=== PATIENT | female | born 1965 | race Caucasian/White ===

== ENCOUNTER 2018-12-29 16:15 | Day surgery (SDC) | payer OTHER ==
[2018-12-29 17:28] LABS: ADD MAN DIFF? NO
[2018-12-29 17:32] LABS: BASOPHIL # 0.1 10^3/ul (0.0-0.1); BASOPHILS % 0.6 % (0.0-2.0); EOSINOPHILS # 0.1 10^3/ul (0.0-0.5); EOSINOPHILS % 1.5 % (0.0-7.0); LYMPHOCYTES # 2.9 10^3/ul (0.8-2.9); LYMPHOCYTES % 34.1 % (15.0-51.0); MEAN CORPUSCULAR HEMOGLOBIN 28.2 pg (29.0-33.0); MEAN CORPUSCULAR HGB CONC 31.8 g/dl (32.0-37.0); MEAN CORPUSCULAR VOLUME 88.7 fl (82.0-101.0); MEAN PLATELET VOLUME 9.8 fl (7.4-10.4); MONOCYTE # 0.6 10^3/ul (0.3-0.9); MONOCYTES % 7.4 % (0.0-11.0); NEUTROPHIL # 4.7 10^3/ul (1.6-7.5); NEUTROPHILS % 56.2 % (39.0-77.0); PLATELET COUNT 227 10^3/UL (140-415); RED BLOOD COUNT 4.96 10^6/ul (4.20-5.40); RED CELL DISTRIBUTION WIDTH 13.9 % (11.5-14.5)
[2018-12-29 17:32] LABS: WHITE BLOOD COUNT 8.4 10^3/ul (4.8-10.8)
[2018-12-29] MEDS ORDERED: PROPOFOL 100 ML (17:45)
[2018-12-29] MEDS ORDERED: FUROSEMIDE 20 MG INJ (17:45)
[2018-12-29] MEDS ORDERED: FENTAnyl 50 MCG/ML VIAL (17:45)
[2018-12-29] MEDS ORDERED: LIDOCAINE 2% (SDV) 5 ML INJ (17:45)
[2018-12-29] MEDS ORDERED: ONDANSETRON 4 MG INJ (18:17)
[2018-12-29] MEDS ORDERED: DEXAMETHASONE 4 MG/ML 5 ML INJ (18:17)
[2018-12-29] MEDS ORDERED: CEFAZOLIN 1 GM INJ (18:18)
[2018-12-29] MEDS ORDERED: KETOROLAC 30 MG INJ (18:35)
[2018-12-29] MEDS ORDERED: DIPHENHYDRAMINE 50 MG INJ IV (19:00)
[2018-12-29] MEDS ORDERED: FENTAnyl 50 MCG/ML VIAL IV ×2 (19:00)
[2018-12-29] MEDS ORDERED: LABETALOL HCL 20MG INJ IV (19:00)
[2018-12-29] MEDS ORDERED: MEPERIDINE 25 MG INJ IV (19:00)
[2018-12-29] MEDS ORDERED: OXYCODONE/ACETAMINOPHEN (5/325) TAB PO (19:00)
[2018-12-29] MEDS ORDERED: EPHEDrine 25 MG/5 ML SYG IV (19:00)
[2018-12-29] MEDS ORDERED: KETOROLAC 30 MG INJ IV (19:00)
[2018-12-29] MEDS ORDERED: ALBUTEROL 0.083% (NEB) 2.5 MG/3 ML AMP HHN (19:00)
[2018-12-29] MEDS ORDERED: hydrALAzine 20 MG INJ IV (19:00)
[2018-12-29] MEDS ORDERED: METOCLOPRAMIDE 10 MG INJ IV (19:00)
[2018-12-29] MEDS: FENTAnyl 50 MCG/ML VIAL IV (19:19)
[2018-12-29] MEDS: ONDANSETRON 4 MG INJ IV (19:19)
[2018-12-29] MEDS: OXYCODONE/ACETAMINOPHEN (5/325) TAB PO (19:58)
== END 2018-12-29 20:40 | disposition home or self-care (01) ==
LOC: SDS 16:15
DX: N72 Inflammatory disease of cervix uteri (principal); N93.9 Abnormal uterine and vaginal bleeding, unspecified
CPT/HCPCS: 58563; 84702; 84703; 85025; 86850; 86900; 86901; 88305